=== PATIENT | male | born 1940 | race Caucasian/White ===

== ENCOUNTER → 2017-02-18 | Outpatient (CLI) | payer MEDICARE ==
[~2017-02-18] MED LIST: ACID1GRA2 PO; ALBU18HF INH; ALPR-475 PO; ATOR40TA78 PO; AZIT500T PO; BUDE10.2 INH; BUPR150T13 PO; CEFD300C37 PO; DILT300C44 PO; FLUO15CR2 EXT; FURO20TA3 PO; LISI5TAB7 PO; MOME13HF INH; MONT10TA6 PO; PANT40TA5 PO; PRED10TA PO; TAMS0.4C2 PO; THEO400T2 PO; TRAM50TA2 PO
== END | disposition home or self-care (01) ==
LOC: CFH 13:40
PROVIDERS: ATTEND Physician Assistant
DX: J18.9 Pneumonia, unspecified organism (principal); M40.294 Other kyphosis, thoracic region; I10 Essential (primary) hypertension
CPT/HCPCS: 71020